=== PATIENT | female | born 1990 | race Caucasian/White ===

== ENCOUNTER 2025-02-06 14:29 | Outpatient (CLI) | payer BC | END 2025-02-06 14:30 | disposition home or self-care (01) | LOC: CSHMAMMO 14:29 | PROVIDERS: ATTEND Physician Assistant | DX: N63.10 Unspecified lump in the right breast, unspecified quadrant (principal) | CPT/HCPCS: 77066; G0279 ==

== ENCOUNTER → 2025-02-09 | Day surgery (SDC) | payer BC | LOC: CSHULT 12:20 | PROVIDERS: ATTEND Physician Assistant | PROC: 0HBT3ZX Excision of Right Breast, Percutaneous Approach, Diagnostic (ICD-10-PCS; principal; 2025-02-09) | PROC: 07B63ZX Excision of Left Axillary Lymphatic, Percutaneous Approach, Diagnostic (ICD-10-PCS; principal; 2025-02-09) | DX: C50.411 Malignant neoplasm of upper-outer quadrant of right female breast (principal); C96.9 Malignant neoplasm of lymphoid, hematopoietic and related tissue, unspecified; Z17.0 Estrogen receptor positive status [ER+]; Z17.21 Progesterone receptor positive status; Z17.31 Human epidermal growth factor receptor 2 positive status | CPT/HCPCS: 19083; 38505; 76942; 88305; 88341; 88342; A4648 ==

== ENCOUNTER 2025-02-25 10:15 | Outpatient (CLI) | payer BC | END 2025-02-25 10:16 | disposition home or self-care (01) | LOC: CSHMRI 10:15 | PROVIDERS: ATTEND Physician Assistant | DX: C50.411 Malignant neoplasm of upper-outer quadrant of right female breast (principal); R59.0 Localized enlarged lymph nodes | CPT/HCPCS: C8908 ==

== ENCOUNTER 2025-02-26 05:58 | Day surgery (SDC) | payer BC ==
[2025-02-25 14:02] VITALS: BMI 24.7
[2025-02-26] MEDS ORDERED: PROPOFOL 20 ML ONE ×2 (07:33→07:54)
[2025-02-26] MEDS ORDERED: Ondansetron PF 4 MG/2 ML Vial ONE (07:34)
[2025-02-26] MEDS ORDERED: Lidocaine 1% PF 5 ML VIAL ONE (07:34)
[2025-02-26] MEDS ORDERED: Bupivacaine HCl 0.5%/Epinephrine 1:200,000/PF 30 ml Vial ONE (07:35)
[2025-02-26] MEDS ORDERED: CEFAZOLIN 2 GM VIAL ONE (07:36)
== END 2025-02-26 10:04 | disposition home or self-care (01) ==
LOC: CSHSDC 05:58
PROVIDERS: ATTEND Surgery
PROC: 0JH60WZ Insertion of Totally Implantable Vascular Access Device into Chest Subcutaneous Tissue and Fascia, Open Approach (ICD-10-PCS; principal; 2025-02-26)
DX: C50.411 Malignant neoplasm of upper-outer quadrant of right female breast (principal); I10 Essential (primary) hypertension; M54.50 Low back pain, unspecified; Z17.31 Human epidermal growth factor receptor 2 positive status; Z87.891 Personal history of nicotine dependence; Z91.040 Latex allergy status
CPT/HCPCS: 71045; A6258; C1788; J1100; J1642; J2250; J2405; J2704; J3010

== ENCOUNTER 2025-03-09 08:00 | Outpatient (CLI) | payer BC | END 2025-03-09 11:51 | disposition home or self-care (01) | LOC: CSHULT 08:00 | PROVIDERS: ATTEND Internal Medicine | DX: Z51.11 Encounter for antineoplastic chemotherapy (principal); C50.411 Malignant neoplasm of upper-outer quadrant of right female breast | CPT/HCPCS: 93306 ==

== ENCOUNTER 2025-03-09 12:42 | Outpatient (CLI) | payer BC ==
[2025-03-09] MEDS ORDERED: Iopamidol 300 61% 100 ML VIAL FS ONE (13:08)
== END 2025-03-09 12:43 | disposition home or self-care (01) ==
LOC: CSHCT 12:42
PROVIDERS: ATTEND Internal Medicine
DX: Z51.11 Encounter for antineoplastic chemotherapy (principal); C50.411 Malignant neoplasm of upper-outer quadrant of right female breast; R91.1 Solitary pulmonary nodule; N63.15 Unspecified lump in the right breast, overlapping quadrants; K76.9 Liver disease, unspecified
CPT/HCPCS: 71260; 74177; Q9967

== ENCOUNTER 2025-06-30 14:37 | Outpatient (CLI) | payer BC | END 2025-06-30 14:38 | disposition home or self-care (01) | LOC: CSHULT 14:37 | PROVIDERS: ATTEND Internal Medicine | DX: C50.411 Malignant neoplasm of upper-outer quadrant of right female breast (principal) | CPT/HCPCS: 93306 ==